=== PATIENT | female | born 1970 | race Caucasian/White ===

== ENCOUNTER → 2016-08-19 | Outpatient (CLI) | payer OTHER ==
--- NOTE | 2016-08-19 13:25 | US ---
Ultrasound Pelvis Complete (Transabdominal and Endovaginal) Including Duplex/Doppler Imaging History: D25.9 Leiomyoma of uterus, unspecified N92.0 Excessive and frequent menstruation with regula r cycle. Technique: Transabdominal and endovaginal ultrasound images were obtained. Endovaginal images obtaine d for better evaluation of the uterine myometrium and adnexa. Duplex/Doppler imaging of adnexa. Findings: Uterus measures 16 x 7 x 10 cm. Endometrial thickness is 3 mm. In the right side of the fun dus of the uterus is a heterogenous solid 7.1 x 6.4 x 4.8 cm mass with mass effect on the endometrium probably representing a uterine leiomyoma. Right ovary measures 3.2 x 1.2 x 2.4 cm. Left ovary measures 3.6 x 4.4 x 2.2 cm. Left ovarian dominan t follicle or simple cyst measuring 2.4 x 2.1 x 1.5 cm. Prominent bilateral adnexal veins measuring u p to 8 mm. No significant free fluid in the pelvis. Color Doppler flow to both ovaries without torsi on. Impression: 1. No ovarian torsion or significant free fluid. 2. Heterogenous leiomyoma in the right side of the fundus of the uterus measuring 7.1 x 4.8 x 6.4 cm. Follow-up recommended. 3. Prominent bilateral pelvic veins suggesting pelvic congestion. 4. Left ovarian dominant follicle or simple cyst measuring 2.4 x 2.1 x 1.5 cm.
== END ==
LOC: FIMAGING 10:10
PROVIDERS: ATTEND Family Medicine
DX: N83.292 Other ovarian cyst, left side (principal); D25.9 Leiomyoma of uterus, unspecified

== ENCOUNTER → 2016-08-25 | Outpatient (CLI) | payer OTHER | LOC: FIMAGING 15:40 | PROVIDERS: ATTEND Family Medicine | DX: N94.89 Other specified conditions associated with female genital organs and menstrual cycle (principal); D25.9 Leiomyoma of uterus, unspecified; N85.2 Hypertrophy of uterus ==

== ENCOUNTER 2016-10-25 07:25 | Day surgery (SDC) | payer OTHER ==
[2016-10-25] MEDS ORDERED: methylPREDNISolone SOD SUCC 125 MG/2 ML VIAL ONE (08:45)
[2016-10-25] MEDS ORDERED: fentaNYL 100 MCG/2 ML INJ ONE (08:45)
[2016-10-25] MEDS ORDERED: MIDAZOLAM 2 MG/2 ML VIAL ONE (08:45)
[2016-10-25] MEDS ORDERED: SODIUM TETRADECYL SULFATE 60 MG/2 ML VIAL IV ONE (09:38)
[2016-10-25] MEDS ORDERED: IOPAMIDOL (ISOVUE-300) 100 ML BTL IV ONE (10:38)
== END 2016-10-25 11:45 | disposition home or self-care (01) ==
LOC: FIMAGING 07:25
PROVIDERS: ATTEND Radiology Diagnostic Radiology
PROC: 06LY3ZZ Occlusion of Lower Vein, Percutaneous Approach (ICD-10-PCS; principal; 2016-10-25 10:32)
PROC: 05HM33Z Insertion of Infusion Device into Right Internal Jugular Vein, Percutaneous Approach (ICD-10-PCS; principal; 2016-10-25 10:32)
PROC: 06L Lower Veins, Occlusion (ICD-10-PCS; principal; 2016-10-25 10:32)
PROC: 06HH33Z Insertion of Infusion Device into Right Hypogastric Vein, Percutaneous Approach (ICD-10-PCS; principal; 2016-10-25 10:32)
DX: I86.2 Pelvic varices (principal); R10.2 Pelvic and perineal pain; I87.8 Other specified disorders of veins; N94.89 Other specified conditions associated with female genital organs and menstrual cycle
CPT/HCPCS: 36011; 36012; 37241; 75736; 99152; C1769; C1892; J1200; J1644; J2250; J3010; Q9967

== ENCOUNTER 2017-01-12 07:48 | Inpatient (IN) | payer OTHER ==
[2017-01-12] MEDS ORDERED: SCOPOLAMINE HYDROBROMIDE 1.5 MG PATCH TD ONE ×2 (07:53→11:17)
[2017-01-12] MEDS ORDERED: KETOROLAC 15 MG/1 ML SDV ONE (07:53)
[2017-01-12] MEDS ORDERED: MIDAZOLAM 2 MG/2 ML VIAL ONE ×3 (07:54→11:49)
[2017-01-12] MEDS ORDERED: CEFAZOLIN 2 GM/DEXTROSE/100 ML BAG IV ONE (07:54)
[2017-01-12] MEDS ORDERED: fentaNYL 100 MCG/2 ML INJ ONE (07:54)
[2017-01-12] MEDS ORDERED: FLUMAZENIL 0.5 MG/5 ML MDV IVP ONE (07:55)
[2017-01-12] MEDS ORDERED: NALOXONE HCL 0.4 MG/ML INJ ONE (07:55)
[2017-01-12] MEDS ORDERED: HEPARIN 10,000 UNIT/10 ML MDV ONE (09:20)
[2017-01-12] MEDS ORDERED: HYDROmorphONE/DILAUDID 6 MG/30 ML PCA IV ONE (09:36)
[2017-01-12] MEDS ORDERED: NITROGLYCERIN/D5W 50 MG/250 ML BOTTLE IV ONE (10:05)
[2017-01-12] MEDS ORDERED: IOPAMIDOL (ISOVUE-300) 100 ML BTL ONE ×3 (10:05→12:35)
[2017-01-12] MEDS ORDERED: KETOROLAC 30 MG/1 ML SDV IVP ONE (11:17)
[2017-01-12] MEDS ORDERED: NS 1,000 ML IV ONE (11:17)
[2017-01-12] MEDS ORDERED: HYDROmorphONE/DILAUDID 6 MG/30 ML PCA IV PRN (12:24)
[2017-01-12] MEDS ORDERED: NALOXONE HCL 0.4 MG/ML INJ IVP PRN ×2 (12:24→21:07)
[2017-01-12] MEDS ORDERED: POLYETHYLENE GLYCOL 3350 17 GM PKT PO PRN (12:24)
[2017-01-12] MEDS ORDERED: BISACODYL 10 MG SUPP PR PRN (12:24)
[2017-01-12] MEDS ORDERED: LACTULOSE 20 GM/30 ML UDCUP PO PRN (12:24)
--- NOTE | 2017-01-12 12:31 | POSTOPPROG ---
Post Op Note Date of Operation: 01/12/17 Surgeon: Floridalma Garner Anesthesia: IV Sedation (fentanyl and versed) Pre-op Diagnosis: fibroids Post-op Diagnosis: same Indication: dysmenorrhea Procedure: UFE Findings: see report Inf/Abcess present in the surg proc area at time of surgery?: No Depth: Superfical (Skin SQ) EBL: Minimal Complications: None
[2017-01-12] MEDS ORDERED: BUPIVACAINE 0.5% 30 ML SDV ONE (12:35)
[2017-01-12] MEDS: morphINE SR 15 MG TAB PO SCH ×2 (16:01→21:16)
[2017-01-12] MEDS: KETOROLAC 30 MG/1 ML SDV IVP SCH (17:52)
[2017-01-12] MEDS: ONDANSETRON 4 MG/2 ML VIAL IVP PRN (19:23)
[2017-01-12] MEDS: HYDROmorphONE/DILAUDID 6 MG/30 ML PCA IV PRN (21:16)
[2017-01-12] MEDS: SENNOSIDES/DOCUSATE SODIUM TAB PO SCH (21:17)
[2017-01-13] MEDS: NS 1,000 ML IV SCH ×2 (00:08→10:03)
[2017-01-13] MEDS: KETOROLAC 30 MG/1 ML SDV IVP SCH ×2 (00:08→06:23)
[2017-01-13] MEDS ORDERED: levOFLOXACIN 500 MG/DEXTROSE 100 ML IV ONE (09:00)
[2017-01-13] MEDS: morphINE SR 15 MG TAB PO SCH ×2 (09:07→20:47)
[2017-01-13] MEDS: SENNOSIDES/DOCUSATE SODIUM TAB PO SCH ×2 (09:08→20:47)
[2017-01-13] MEDS: HYDROmorphONE/DILAUDID 6 MG/30 ML PCA IV PRN (09:59)
--- NOTE | 2017-01-13 10:17 | SOAPPROG ---
SOAP Progress Note Assessment/Plan: Assessment: Slowly recovering post UAE. Has had lots of hydration without urination in the last 3-4 hrs. Weaning MEASURING MACHINE TENDER Plan: 1 Need to change patient status to inpatient. Patient will not be able to resolve all above issues by noon today. 2. bladder scan with straight cath if needed 3. continue to wean MEASURING MACHINE TENDER 01/13/17 10:15 Subjective: Still on MEASURING MACHINE TENDER. Just got up to sit in chair. Trying oral pain meds. Can feel "the block wearing off at about 9pm last night." Goodrich was removed early this am, and has not been able to urinate. Feels cramping. Objective: Vital Signs Temp Pulse Resp BP Pulse Ox 37.7 C 84 18 106/57 L 96 01/13/17 08:00 01/13/17 08:00 01/13/17 08:00 01/13/17 09:08 01/13/17 08:00 01/12/17 01/13/17 01/14/17 05:59 05:59 05:59 Intake Total 2575 Output Total 850 Balance 1725 Abd slightly tender on palpation. No rebound. No hematoma. ICD10 Worksheet Patient Problems: Problems Problem Status Onset Dysmenorrhea Acute Uterine fibroid Acute - ICD10 Problem Qualifiers (1) Dysmenorrhea (2) Uterine fibroid Qualifiers: Uterine leiomyoma location: U
[2017-01-13] MEDS: IBUPROFEN 600 MG TAB PO SCH ×3 (12:25→23:12)
[2017-01-13] MEDS: ONDANSETRON 4 MG/2 ML VIAL IVP PRN (14:11)
[2017-01-13] MEDS: oxyCODONE IR 5 MG TAB PO PRN (14:59)
--- NOTE | 2017-01-13 18:28 | SOAPPROG ---
SOAP Progress Note Assessment/Plan: Assessment: Slowly recovering post UAE. Has had lots of hydration without urination in the last 3-4 hrs. 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 Patient will not be able to resolve all above issues by noon today. 2. bladder scan with straight cath if needed 3. continue to wean COLLECTOR OF PORT 01/13/17 10:15 01/13/17 18:27 1. Abd pain and "redness": Pain is out of ordinary for this far out from UFE. 2. Low grade fevers, also unusual. Concerned about infection. 3. Will obtain CT abd/pel now with IVC to evaluate. Subjective: Having low grade fevers. Feels significant pain in abd diffusely. Can't sit up Objective: Vital Signs Temp Pulse Resp BP Pulse Ox 37.7 C 72 18 106/64 95 01/13/17 16:00 01/13/17 16:00 01/13/17 16:00 01/13/17 16:00 01/13/17 16:00 01/12/17 01/13/17 01/14/17 05:59 05:59 05:59 Intake Total 2575 3000 Output Total 850 1400 Balance 1725 1600 Lower abd "red," according to both patient and nurse. Difficult to tell by exam due to patient baseline skin color. Abd tender on palpation. ICD10 Worksheet Patient Problems: Problems Problem Status Onset Dysmenorrhea Acute Uterine fibroid Acute - ICD10 Problem Qualifiers (1) Dysmenorrhea (2) Uterine fibroid Qualifiers: Uterine leiomyoma location: U
[2017-01-13] MEDS ORDERED: IOPAMIDOL (ISOVUE-300) 100 ML BTL ONE ×2 (18:55→19:01)
[2017-01-13 18:58] LABS: % IMMATURE GRANULYOCYTES 0.3 % (0.0-1.1); ABSOLUTE IMMATURE GRANULOCYTES 0.03 10^3/uL (0.00-0.10); ADD DIFF? NO; ADD MORPH? NO; ADD SCAN? NO; ATYPICAL LYMPHOCYTE FLAG 0 (0-99); FRAGMENT RBC FLAG 0 (0-99); HEMATOCRIT 30.1 % (38.0-47.0); HEMOGLOBIN 9.8 g/dL (12.6-16.3); LEFT SHIFT FLG 0 (0-99); LIPEMIA HEMOLYSIS FLAG 80 (0-99); MEAN CELL HEMOGLOBIN 28.2 pg (27.9-34.1); MEAN CELL HEMOGLOBIN CONCENTR. 32.6 g/dL (32.4-36.7); MEAN CELL VOLUME 86.5 fL (81.5-99.8); MEAN PLATELET VOLUME 10.4 fL (8.7-11.7); PLATELET CLUMPS FLAG 0 (0-99); PLATELET COUNT 192 10^3/uL (150-400); RED BLOOD CELL COUNT 3.48 10^6/uL (4.18-5.33); RED CELL DISTRIBUTION WIDTH 16.4 % (11.5-15.2)
[2017-01-13 19:31] LABS: ALANINE AMINOTRANSFERASE 22 IU/L (9-52); ALBUMIN 3.2 g/dL (3.5-5.0); ALKALINE PHOSPHATASE 27 IU/L (38-126); ANION GAP 8 mEq/L (8-16); ASPARTATE AMINOTRANSFERASE 20 IU/L (14-46); BILIRUBIN,TOTAL 0.8 mg/dL (0.1-1.4); CALCIUM 8.6 mg/dL (8.5-10.4); CARBON DIOXIDE 20 mEq/l (22-31); CHLORIDE 103 mEq/L (97-110); CREATININE 0.7 mg/dL (0.6-1.0); GLOMERULAR FILTRATION RATE > 60; GLUCOSE 112 mg/dL (70-100); POTASSIUM 4.2 mEq/L (3.5-5.2); SODIUM 131 mEq/L (134-144)
[2017-01-13] MEDS: MAGNESIUM HYDROXIDE 30 ML UDCUP PO PRN (20:47)
--- NOTE | 2017-01-13 21:17 | GHP ---
[f rep st] HISTORY AND PHYSICAL DATE OF ADMISSION: 01/13/2017 CHIEF COMPLAINT: Abdominal pain. HISTORY: This is a 46-year-old female who has a past medical history of uterine fibroids which have been present for several years and have been symptomatic in that she has a sensation of constant pr essure in her pelvis and also has had heavy menstrual periods. She was brought in today for uterine and ovarian artery embolization for assistance with her symptoms of pelvic congestion syndrome. Si nce the time of the procedure, however, the patient has had worsening abdominal discomfort and a sen se of both distention and what she believes to be redness of her lower abdomen. She notes that the pain is severe and is only controlled by the Dilaudid CHILD AND ADOLESCENT THERAPIST she has been initiated on. She has been m aking urine but has not had any gas that is being passed. She has also had low-grade fevers. Dr. Mague horn felt she would be best monitored overnight to rule out any sort of infectious process or other et iology to explain her worsening and out of proportion abdominal pain. PAST MEDICAL HISTORY: Includes: 1. Uterine fibroids. 2. Chronic constipation. PAST SURGICAL HISTORY: x2. FAMILY HISTORY: Fibroids. SOCIAL HISTORY: Patient lives with her . She is a nonsmoker, nondrinker, nondrug user. REVIEW OF SYSTEMS: A 10-point review of systems obtained and is negative except as per HPI. HOME MEDICATIONS: Include: 1. Ibuprofen. 2. Ferrous sulfate. 3. Omeprazole. ALLERGIES: No known drug allergies. PHYSICAL EXAMINATION: VITAL SIGNS: BP 105/69, heart rate 74, respiratory rate 20, O2 sat 94% on 1 L, temperature is 37.4. GENERAL APPEARANCE: This is a well-developed/well-nourished female. She i s awake and alert. She is in mild distress. EYES: Anicteric. HENT: Oropharynx clear. CARDIOVAS CULAR: Regular rate and rhythm, no MRG. PULMONARY: CTA bilaterally. Normal work of breathing. ABDOMEN: Soft, there is tenderness to palpation in the bilateral lower quadrants without rebound or guarding. Bowel sounds are decreased. There is evidence of chlorhexidine prep on the abdomen but otherwise no clear erythema or warmth. EXTREMITIES: No clubbing, cyanosis, or edema. SKIN: Warm, dry, well perfused. NEURO/PSYCH: Oriented and appropriate, pleasant. CLINICAL DATA: Labs remarkable for white blood cell count of 9.3, hematocrit of 30.1, platelets of 192. Chemistry notable for sodium of 131. Abdominal CT personally reviewed and interpreted, discussed with Dr. Garner, shows no free air, no evid ence of infection. There is evidence of significant constipation. ASSESSMENT AND PLAN: This is a 46-year-old female, who is status post ovarian and uterine embolizat ion for symptomatic fibroids, who is having significant postprocedural abdominal pain. 1. Abdominal pain. The only findings on CT of significance are significant constipation as well as question of ileus. This would be consistent with her abdominal exam. She will be started on a bow el protocol and will hold off on having her eat until she has some evidence of improved bowel functi on. This certainly could be complicated by opiate pain medications and will attempt to transition h er off the IV Dilaudid in favor of oral opiates. Will have patient ambulate t.i.d. 2. Symptomatic uterine fibroids. As above, patient is now status post embolization of uterine and ovarian arteries. By CT scan, there is no evidence of acute complication. White blood cell count i s normal. No evidence of infection by exam. Will continue to monitor overnight. 3. Hyponatremia. Relatively mild and in the setting of not having eaten or drank much today. Will continue normal saline overnight. Will recheck in the morning. 4. Chronic constipation. Likely complicating her abdominal pain picture. Again, bowel protocol magana s been started. 5. Disposition. Observation status. I suspect she will need less than 48 hours' stay for evaluati on and management of above. Patient is new to my care. Old records reviewed, summarized as per HPI and Past Medical History. C are plan reviewed with Dr. Floridalma Garner. Further history obtained from patient's present at [facility]. /[id number]/MODL
[2017-01-14] MEDS: HYDROmorphONE/DILAUDID 6 MG/30 ML PCA IV PRN (04:35)
[2017-01-14 05:16] LABS: % IMMATURE GRANULYOCYTES 0.4 % (0.0-1.1); ABSOLUTE IMMATURE GRANULOCYTES 0.04 10^3/uL (0.00-0.10); ADD DIFF? NO; ADD MORPH? NO; ADD SCAN? NO; ATYPICAL LYMPHOCYTE FLAG 0 (0-99); FRAGMENT RBC FLAG 0 (0-99); HEMOGLOBIN 9.5 g/dL (12.6-16.3); LEFT SHIFT FLG 10 (0-99); LIPEMIA HEMOLYSIS FLAG 80 (0-99); MEAN CELL HEMOGLOBIN 28.1 pg (27.9-34.1); MEAN CELL HEMOGLOBIN CONCENTR. 31.7 g/dL (32.4-36.7); MEAN CELL VOLUME 88.8 fL (81.5-99.8); MEAN PLATELET VOLUME 10.8 fL (8.7-11.7); PLATELET CLUMPS FLAG 0 (0-99); PLATELET COUNT 189 10^3/uL (150-400); RED BLOOD CELL COUNT 3.38 10^6/uL (4.18-5.33); RED CELL DISTRIBUTION WIDTH 16.6 % (11.5-15.2)
[2017-01-14 05:24] LABS: ANION GAP 6 mEq/L (8-16); CALCIUM 8.4 mg/dL (8.5-10.4); CARBON DIOXIDE 24 mEq/l (22-31); CHLORIDE 108 mEq/L (97-110); CREATININE 0.7 mg/dL (0.6-1.0); GLOMERULAR FILTRATION RATE > 60; GLUCOSE 96 mg/dL (70-100); POTASSIUM 4.1 mEq/L (3.5-5.2); SODIUM 138 mEq/L (134-144)
[2017-01-14] MEDS: IBUPROFEN 600 MG TAB PO SCH ×4 (06:04→23:00)
[2017-01-14] MEDS: MAGNESIUM HYDROXIDE 30 ML UDCUP PO PRN (08:41)
[2017-01-14] MEDS: morphINE SR 15 MG TAB PO SCH ×2 (08:42→20:30)
[2017-01-14] MEDS: FERROUS SULFATE 325 MG TAB PO SCH (08:42)
[2017-01-14] MEDS: SENNOSIDES/DOCUSATE SODIUM TAB PO SCH ×2 (08:42→20:30)
[2017-01-14] MEDS ORDERED: ACETAMINOPHEN 325 MG TAB PO PRN (11:15)
--- NOTE | 2017-01-14 11:18 | HOSPPROG ---
Hospitalist Progress Note Assessment/Plan: # abd pain post uterine artery embolization - ongoing low grade fevers - no clear infection currently, hold on abx - likely d/t procedure, low threshold to involve distribution center assistant or re-image - cont dilaudid IP ATTORNEY # ileus - resolving # mild leukocytosis - follow Subjective: abd pain better today; borderline fever this am; bloody vaginal discharge Objective: Vital Signs Temp Pulse Resp BP Pulse Ox 37.9 C 88 24 H 109/63 92 01/14/17 10:01/14/17 10:01/14/17 10:01/14/17 10:01/14/17 10:09 Laboratory Results 01/14/17 03:49 01/14/17 03:49 01/13/17 01/14/17 01/15/17 05:59 05:59 05:59 Intake Total 2575 3000 Output Total 850 2900 Balance [address] reviewed - Physical Exam Constitutional: uncomfortable Cardiovascular: regular rate and rhythym, no murmur, rub, or gallop Respiratory: no respiratory distress, no rales or rhonchi, clear to auscultation Gastrointestinal: distension, other (+BS, soft, no masses), No guarding, No rebound ICD10 Worksheet Patient Problems: Problems Problem Status Onset Dysmenorrhea Acute Uterine fibroid Acute
[2017-01-14] MEDS: oxyCODONE IR 5 MG TAB PO PRN (13:32)
[2017-01-14] MEDS: METOCLOPRAMIDE 10 MG/2 ML VIAL IVP SCH ×2 (17:41→23:00)
--- NOTE | 2017-01-14 19:28 | SOAPPROG ---
SOAP Progress Note Assessment/Plan: Assessment: Status post uterine fibroid embolization. Anticipate improvement with supportive care. Chronic constipation, exacerbated by narcotic analgesic. Bibasilar atelectasis secondary to poor inspiratory depth. Plan: Supportive care. Enema. Incentive spirometer. 01/14/17 19:25 01/14/17 19:34 Subjective: Distended belly, nausea. Objective: Heart: Pulse 88 bpm, RRR, no murmur. Lungs: Diminished sounds and rales at both bases; poor inspiratory effort. Abdomen: bowel sounds present in all four quadrants. Tender mass in lower central abdomen compatible with infarcted uterine fibroid. Abdomen otherwise soft and nontender. Right groin dry; no hematoma. Right leg pulses are intact 4+ fem, pop, DP, PT. Procalcitonin 0.48--negative for sepsis. Vital Signs Temp Pulse Resp BP Pulse Ox 38.6 C H 89 18 118/72 92 01/14/17 18:23 01/14/17 18:23 01/14/17 18:23 01/14/17 18:23 01/14/17 18:23 Laboratory Results 01/14/17 03:49 01/14/17 03:49 01/13/17 01/14/17 01/15/17 05:59 05:59 05:59 Intake Total 2575 3000 2000 Output Total 850 2900 400 Balance [id number] ICD10 Worksheet Patient Problems: Problems Problem Status Onset Dysmenorrhea Acute Uterine fibroid Acute
[2017-01-14 20:16] VITALS: RESP 16
[2017-01-14] MEDS: ERTAPENEM 1 GM in NS 100 ML IV SCH (22:03)
[2017-01-14] MEDS: DOXYCYCLINE INJ 100 MG in NS 250 ML IV SCH (23:00)
[2017-01-15 04:58] LABS: % IMMATURE GRANULYOCYTES 0.5 % (0.0-1.1); ABSOLUTE IMMATURE GRANULOCYTES 0.04 10^3/uL (0.00-0.10); ADD DIFF? NO; ADD MORPH? NO; ADD SCAN? NO; ATYPICAL LYMPHOCYTE FLAG 0 (0-99); FRAGMENT RBC FLAG 0 (0-99); HEMATOCRIT 28.7 % (38.0-47.0); LEFT SHIFT FLG 30 (0-99); LIPEMIA HEMOLYSIS FLAG 80 (0-99); MEAN CELL HEMOGLOBIN 27.6 pg (27.9-34.1); MEAN CELL HEMOGLOBIN CONCENTR. 31.4 g/dL (32.4-36.7); PLATELET CLUMPS FLAG 0 (0-99); PLATELET COUNT 174 10^3/uL (150-400); RED BLOOD CELL COUNT 3.26 10^6/uL (4.18-5.33); RED CELL DISTRIBUTION WIDTH 16.2 % (11.5-15.2)
[2017-01-15] MEDS: IBUPROFEN 600 MG TAB PO SCH ×2 (06:05→14:13)
[2017-01-15] MEDS: METOCLOPRAMIDE 10 MG/2 ML VIAL IVP SCH ×2 (06:06→14:13)
[2017-01-15 07:53] VITALS: BP 105/61; PULSE 74; TEMP 97.8; O2SAT 98
[2017-01-15] MEDS: FERROUS SULFATE 325 MG TAB PO SCH (09:41)
[2017-01-15] MEDS: SENNOSIDES/DOCUSATE SODIUM TAB PO SCH (09:41)
[2017-01-15] MEDS: morphINE SR 15 MG TAB PO SCH (09:41)
[2017-01-15] MEDS: ERTAPENEM 1 GM in NS 100 ML IV SCH (09:42)
[2017-01-15] MEDS: DOXYCYCLINE INJ 100 MG in NS 250 ML IV SCH (09:42)
--- NOTE | 2017-01-15 13:21 | GDS ---
[f rep st] DISCHARGE SUMMARY ALL DIAGNOSES: 1. Fibroids, status post uterine artery embolization. 2. Suspected postoperative infection. 3. Constipation. 4. Ileus. HOSPITAL COURSE: A 46-year-old female admitted for elective uterine artery embolization to a large symptomatic fibroid. Her postop course was notable for ongoing fevers, leukocytosis, ileus with per sistent emesis. She also has a history of chronic constipation. She was treated symptomatically fo r her ileus with n.p.o., IV fluids and other supportive care. This resolved on its own after she magana d a large bowel movement. On the day of discharge, she ate a full liquid meal for breakfast, most o f a solid meal for lunch, and is not having any worsening abdominal pain, or nausea. Her abdomen on discharge is still mildly distended, however, much improved from the day prior. She feels comforta ble that she can hydrate. She had fevers, as well as a procalcitonin 0.46. Because of this, I empirically started her on anti biotics. I will give her a 1 week course of Augmentin and doxycycline to cover appropriate organism s. I have warned her that if she has recurrent fevers or worsening distention when she stops the an tibiotics, she will need to report to the emergency department for additional imaging. She requests no narcotics to be prescribed, as she is a recovering addict. She will take care of he r pain with acetaminophen and ibuprofen. BILLING: I spent more than 30 minutes on the day of discharge coordinating care, including jensen mckeon with Dr. Garcia. FOLLOWUP: She will follow up with Dr. Garner. I have given her Dr. Garner's phone number to call and angelo jo-ann this. /[id number]/MODL
== END 2017-01-15 14:26 | disposition home or self-care (01) | DRG 358 ==
LOC: FIMAGING 07:48 → F2W 12:26 → OBSVTOIN 01-13 12:49
PROVIDERS: ADMIT Radiology Diagnostic Radiology; ATTEND Student in an Organized Health Care Education/Training Program
DX: K56.0 Paralytic ileus (principal); R50.9 Fever, unspecified; D25.9 Leiomyoma of uterus, unspecified; N94.6 Dysmenorrhea, unspecified; K59.00 Constipation, unspecified
CPT/HCPCS: C1760; C1769; G0378; J0690; J1170; J1200; J1335; J1644; J1885; J1956; J2250; J2310; J2405; J2765; J3010; Q9967